=== PATIENT | female | born 1985 | race Caucasian/White ===

== ENCOUNTER 2017-03-29 22:42 | Emergency (ER) | payer SELFPAY ==
[2017-03-29 23:10] VITALS: BP 131/91
[2017-03-29] MEDS ORDERED: Albuterol/Ipratropium 3.0-0.5 MG/3 ML Neb Soln NEB ONE (23:56)
--- NOTE | 2017-03-30 00:14 | EDM.PDOC ---
ED HPI GENERAL MEDICAL PROBLEM - General Chief Complaint: Respiratory Problem Stated Complaint: COUGH Time Seen by Provider: 03/29/17 23:55 Source of Information: Reports: Patient History Limitations: Reports: No Limitations - History of Present Illness INITIAL COMMENTS - FREE TEXT/NARRATIVE: This is a 31-year-old female. 2 weeks ago she was seen by her family doctor for acute bronchitis and exacerbation of her asthma. She was given prednisone and placed on Zithromax. She is finished the medication she still having increasing coughing congestion and wheezing. She comes to the ER for evaluation. She denies any fever or chills. She does have coughing spells where she can hardly stop coughing. She continues to have wheezing and she is coughing up green brown and yellow phlegm. No nausea vomiting. She denies being . 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 Chest Pain Score (Numeric/FACES): 8 - Related Data Allergies Allergy/AdvReac Type Severity Reaction Status Date / Time morphine Allergy Severe Airway Verified 03/29/17 23:05 Tightness Home Meds: Home Meds traZODone 50 mg PO BEDTIME 07/08/15 [History] Meloxicam 15 mg PO DAILY #10 tablet 01/01/16 [Rx] Rizatriptan Benzoate [Rizatriptan] 1 tab PO Q2H PRN #3 tab.rapdis 11/29/16 [Rx] Amoxicillin/Potassium Clav [Augmentin 875-125 Tablet] 1 each PO BID #20 tablet 03/30/17 [Rx] Benzonatate [Tessalon Perles] 200 mg PO TID PRN #20 cap 03/30/17 [Rx] Prednisone [IJD: predniSONE] 20 mg PO WITHBREAKFAST #5 tab 03/30/17 [Rx] Past Medical History Other OB/BYN History: left ovarian cystectomy hx. lap hysterectomy on 07/08/2015 Neurological History: Reports: Migraines Psychiatric History: Reports: Depression, Other (See Below) - Past Surgical History HEENT Surgical History: Reports: Naso-Sinus Surgery GI Surgical History: Reports: Appendectomy, Cholecystectomy Female Surgical History: Reports: Hysterectomy, Salpingo-Oophorectomy, Other (See Below) Musculoskeletal Surgical History: Reports: Other (See Below) Social & Family History - Tobacco Use Smoking Status *Q: Current Every Day Smoker Years of Tobacco use: 10 Packs/Tins Daily: 1 Second Hand Smoke Exposure: No - Caffeine Use Caffeine Use: Reports: Coffee, Energy Drinks, Soda, Tea - Alcohol Use Days Per Week of Alcohol Use: 0 - Recreational Drug Use Recreational Drug Use: No Drug Use in Last 12 Months: No - Living Situation & Occupation Living situation: Reports: Single, with Significant Other Occupation: Employed ED ROS GENERAL - Review of Systems Review Of Systems: See Below Constitutional: Denies: Fever, Chills HEENT: Denies: Rhinitis, Sinus Problem, Throat Pain Respiratory: Reports: Shortness of Breath, Wheezing, Cough, Sputum Cardiovascular: Denies: Chest Pain Endocrine: Reports: No Symptoms GI/Abdominal: Denies: Abdominal Pain, Nausea, Vomiting : Reports: No Symptoms Musculoskeletal: Reports: Other (Patient has global tenderness in her chest from her coughing) Skin: Reports: No Symptoms Neurological: Reports: No Symptoms Psychiatric: Reports: No Symptoms Hematologic/Lymphatic: Reports: No Symptoms ED EXAM, GENERAL - Physical Exam Exam: See Below Exam Limited By: No Limitations General Appearance: Alert, WD/WN, No Apparent Distress Eye Exam: Bilateral Eye: Normal Inspection Ears: Normal External Exam, Normal Canal, Normal TMs Nose: Normal Inspection Throat/Mouth: Normal Inspection, Normal Lips, Normal Voice, No Airway Compromise Head: Normocephalic Neck: Supple Respiratory/Chest: Wheezing, Other (She has wheezing most notably in the left lower base and the right lower base, is expiratory with some mild prolonged expiratory phase, she has global rib and chest tenderness on palpation) Cardiovascular: Regular Rate, Rhythm, No Murmur GI/Abdominal: Soft, Other (Her abdominal muscles are sore as well) Back Exam: Full Range of Motion Extremities: Normal Inspection, Normal Range of Motion Neurological: Alert, Oriented Psychiatric: Normal Affect, Normal Mood Skin Exam: Warm, Dry Course - Vital Signs Last Recorded V/S: Last Vital Signs Temp 97.7 F 03/29/17 23:05 Pulse 110 H 03/29/17 23:05 Resp 18 03/29/17 23:05 BP 131/91 H 03/29/17 23:05 Pulse Ox 100 03/30/17 00:09 - Orders/Labs/Meds Orders: Active Orders 24 hr Category Date Time Status RT Aerosol Therapy [RC] ASDIRECTED Care 03/29/17 23:56 Active Chest 2V [CR] Stat Exams 03/29/17 23:57 Taken Labs: Laboratory Tests 03/30/17 Range/Units 00:16 WBC 9.40 (3.98-10.04) K/mm3 RBC 3.88 L (3.98-5.22) M/mm3 Hgb 11.8 (11.2-15.7) gm/L Hct 35.4 (34.1-44.9) % MCV 91.2 (79.4-94.8) fl MCH 30.4 (25.6-32.2) pg MCHC 33.3 (32.2-35.5) g/dl RDW Std Deviation 42.7 (36.4-46.3) fL Plt Count 250 (182-369) K/mm3 MPV 9.3 L (9.4-12.3) fl Neut % (Auto) 60.2 (34.0-71.1) % Lymph % (Auto) 27.4 (19.3-51.7) % [place] % (Auto) 8.9 (4.7-12.5) % Eos % (Auto) 2.3 (0.7-5.8) Baso % (Auto) 0.2 (0.1-1.2) % Neut # (Auto) 5.65 (1.56-6.13) K/mm3 Lymph # (Auto) 2.58 (1.18-3.74) K/mm3 [place] # (Auto) 0.84 H (0.24-0.36) K/mm3 Eos # (Auto) 0.22 (0.04-0.36) K/mm3 Baso # (Auto) 0.02 (0.01-0.08) K/mm3 Meds: Medications Discontinued Medications Generic Name Dose Route Start Last Admin Trade Name Freq PRN Reason Stop Dose Admin Albuterol/Ipratropium 3 ml 03/29/17 23:56 03/30/17 00:07 Duoneb 3.0-0.5 Mg/3 Ml NEB 03/29/17 23:57 3 ml ONETIME ONE Administration - Radiology Interpretation Free Text/Narrative:: Chest x-ray did not show any acute changes - Re-Assessments/Exams Free Text/Narrative Re-Assessment/Exam: 03/30/17 01:46 Spoke to the patient regarding the test results. We'll put her on some Augmentin and high dose prednisone for 5 days and also some medication for her cough. Departure - Departure Time of Disposition: 01:46 Disposition: Home, Self-Care 01 Condition: good Clinical Impression: Exacerbation of asthma Acute bronchitis Qualifiers: Bronchitis organism: unspecified organism Qualified Code(s): J20.9 - Acute bronchitis, unspecified Upper respiratory infection Qualifiers: URI type: unspecified URI Qualified Code(s): J06.9 - Acute upper respiratory infection, unspecified - Discharge Information Prescriptions: Amoxicillin/Potassium Clav [Augmentin 875-125 Tablet] 1 each PO BID #20 tablet Benzonatate [Tessalon Perles] 200 mg PO TID PRN #20 cap PRN Reason: Cough Prednisone [IJD: predniSONE] 20 mg PO WITHBREAKFAST #5 tab Referrals: Reno Patel Jr, MD [Primary Care Provider] - Forms: ED Department Discharge Additional Instructions: Continue with your albuterol inhaler every 6-8 hours, take the antibiotics as prescribed, take the prednisone in the morning with breakfast to have food in your stomach the next 5 days after you get them tomorrow, use the Tessalon Perles as needed for cough, followup with your family doctor at the end of the week for recheck or return to the ER if your symptoms worsen - My Orders Last 24 Hours: My Active Orders 03/29/17 23:56 RT Aerosol Therapy [RC] ASDIRECTED 03/29/17 23:57 Chest 2V [CR] Stat - Assessment/Plan Last 24 Hours: My Active Orders 03/29/17 23:56 RT Aerosol Therapy [RC] ASDIRECTED 03/29/17 23:57 Chest 2V [CR] Stat
--- NOTE | 2017-03-30 12:56 | CR ---
Chest: Two views of the chest were obtained. Comparison: No previous chest x-ray. Heart size and mediastinum are normal. Lungs are clear. Bony structures appear within normal limits for the patient's age. Surgical clips are seen from prior cholecystectomy. Impression: 1. Nothing acute is identified on two-view chest x-ray. Diagnostic code #1
== END 2017-03-30 01:58 | disposition home or self-care (01) ==
LOC: JD.ED 22:42
DX: J45.901 Unspecified asthma with (acute) exacerbation (principal); J20.9 Acute bronchitis, unspecified; J06.9 Acute upper respiratory infection, unspecified; F17.210 Nicotine dependence, cigarettes, uncomplicated; Z90.49 Acquired absence of other specified parts of digestive tract; Z90.710 Acquired absence of both cervix and uterus; Z90.721 Acquired absence of ovaries, unilateral; Z98.890 Other specified postprocedural states; Z88.5 Allergy status to narcotic agent
CPT/HCPCS: 36415; 71020; 71020-26; 85025; 94664; 99284; 99284-25

== ENCOUNTER 2017-08-17 13:41 | Emergency (ER) | payer SELFPAY ==
[2017-08-17 13:51] VITALS: BP 115/80
--- NOTE | 2017-08-17 14:45 | EDM.PDOC ---
ED HPI GENERAL MEDICAL PROBLEM - General Chief Complaint: Respiratory Problem Stated Complaint: ASTHMA AND SORE THROAT Time Seen by Provider: 08/17/17 14:44 - History of Present Illness INITIAL COMMENTS - FREE TEXT/NARRATIVE: 31-year-old female presents emergency room with breathing difficulties. The patient has had worsening breathing difficulties over the last 7-10 days. The patient is in the process of moving and she misplaced her albuterol and inhaler she usually uses this one or 2 times a day. Her spare inhaler was empty and she has not had this for over a week. This is all she's been using for asthma. The patient complains of intermittent sore throats and tonsillar enlargement. She's been on and off steroids and various antibiotics for this her throat cultures have always been negative. Throat Pain Score (Numeric/FACES): 8 - Related Data Allergies Allergy/AdvReac Type Severity Reaction Status Date / Time morphine Allergy Severe Airway Verified 08/17/17 13:51 Tightness Home Meds: Home Meds traZODone 50 mg PO BEDTIME 07/08/15 [History] Albuterol Sulfate [Proventil Hfa] 6.7 gm IH Q4H PRN #2 hfa.aer.ad 08/17/17 [Rx] Albuterol/Ipratropium [DuoNeb 3.0-0.5 MG/3 ML] 3 ml NEB Q6HRRT #60 neb 08/17/17 [Rx] Amoxicillin 875 mg PO DAILY 08/17/17 [History] Fluticasone Propionate [Flovent HFA 110 MCG] 12 gm INH BID #1 inhaler 08/17/17 [ Rx] Prednisone [IMW: predniSONE] 20 mg PO WITHBREAKFAST #26 tab 08/17/17 [Rx] Sertraline [Zoloft] 50 mg PO DAILY 08/17/17 [History] Past Medical History Respiratory History: Reports: Asthma Other OB/BYN History: left ovarian cystectomy hx. lap hysterectomy on 07/08/2015 Neurological History: Reports: Migraines Psychiatric History: Reports: Depression - Past Surgical History HEENT Surgical History: Reports: Naso-Sinus Surgery GI Surgical History: Reports: Appendectomy, Cholecystectomy Female Surgical History: Reports: Hysterectomy, Salpingo-Oophorectomy Social & Family History - Family History Family Medical History: Noncontributory - Tobacco Use Smoking Status *Q: Never Smoker Years of Tobacco use: 10 Packs/Tins Daily: 1 Second Hand Smoke Exposure: No - Caffeine Use Caffeine Use: Reports: Coffee - Alcohol Use Days Per Week of Alcohol Use: 0 - Recreational Drug Use Recreational Drug Use: No Drug Use in Last 12 Months: No - Living Situation & Occupation Living situation: Reports: Single, with Significant Other Occupation: Employed ED ROS GENERAL - Review of Systems Review Of Systems: See Below Constitutional: Reports: No Symptoms. Denies: Fever, Chills HEENT: Reports: Throat Pain. Denies: No Symptoms, Rhinitis, Sinus Problem, Throat Swelling Respiratory: Reports: Shortness of Breath, Wheezing, Cough Cardiovascular: Reports: No Symptoms GI/Abdominal: Reports: No Symptoms : Reports: No Symptoms ED EXAM, GENERAL - Physical Exam Exam: See Below Exam Limited By: No Limitations General Appearance: Alert, Anxious (Mildly anxious) Eye Exam: Bilateral Eye: Normal Inspection, PERRL Ears: Normal External Exam, Normal Canal, Normal TMs Nose: Normal Inspection Throat/Mouth: Normal Inspection, Normal Lips, Normal Teeth, Normal Gums, Normal Voice, No Airway Compromise, Other (No tonsillar enlargement she has some mild erythema) Neck: Normal Inspection, Supple, Non-Tender, Full Range of Motion. No: Lymphadenopathy (L), Lymphadenopathy (R) Respiratory/Chest: Decreased Breath Sounds, Other (Initially the patient had significantly diminished breath sounds with inspiratory wheezes and severely prolonged expiration no crackles rales or rhonchi noted) Cardiovascular: Regular Rate, Rhythm, No Edema, No Murmur GI/Abdominal: Normal Bowel Sounds, Soft, Non-Tender Course - Vital Signs Last Recorded V/S: Last Vital Signs Temp 36.9 C 08/17/17 13:48 Pulse 79 08/17/17 13:48 Resp 26 H 08/17/17 13:48 BP 115/80 08/17/17 13:48 Pulse Ox 100 08/17/17 15:44 - Orders/Labs/Meds Orders: Active Orders 24 hr Category Date Time Status RT Aerosol Therapy [RC] ASDIRECTED Care 08/17/17 14:55 Active RT Aerosol Therapy [RC] ASDIRECTED Care 08/17/17 15:36 Active RT Aerosol Therapy [RC] ASDIRECTED Care 08/17/17 15:44 Active Chest 2V [CR] Stat Exams 08/17/17 14:59 Taken CULTURE STREP A CONFIRMATION [RM] Stat Lab 08/17/17 15:09 Results STREP SCRN A RAPID W CULT CONF [RM] Stat Lab 08/17/17 15:09 Results Labs: Laboratory Tests 08/17/17 08/17/17 Range/Units 15:15 15:15 WBC 4.51 (3.98-10.04) K/mm3 RBC 4.22 (3.98-5.22) M/mm3 Hgb 12.8 (11.2-15.7) gm/L Hct 38.1 (34.1-44.9) % MCV 90.3 (79.4-94.8) fl MCH 30.3 (25.6-32.2) pg MCHC 33.6 (32.2-35.5) g/dl RDW Std Deviation 41.9 (36.4-46.3) fL Plt Count 215 (182-369) K/mm3 MPV 9.5 (9.4-12.3) fl Neutrophils % (Manual) 45 (40-60) % Band Neutrophils % 0 (0-10) % Lymphocytes % (Manual) 44 H (20-40) % Atypical Lymphs % 0 % Monocytes % (Manual) 9 (2-10) % Eosinophils % (Manual) 2 (0.7-5.8) % Basophils % (Manual) 0 L (0.1-1.2) Platelet Estimate Adequate RBC Morph Comment Normal Sodium 146 H (136-145) mEq/L Potassium 3.3 L (3.5-5.1) mEq/L Chloride 106 (98-107) mEq/L Carbon Dioxide 28 (21-32) mEq/L Anion Gap 15.3 H (5-15) BUN 9 (7-18) mg/dL Creatinine 0.8 (0.55-1.02) mg/dL Est Cr Clr Drug Dosing 84.29 mL/min Estimated GFR (MDRD) > 60 (>60) mL/min BUN/Creatinine Ratio 11.3 L (14-18) Glucose 95 (74-106) mg/dL Calcium 9.1 (8.5-10.1) mg/dL Total Bilirubin 0.4 (0.2-1.0) mg/dL AST 19 (15-37) U/L ALT 18 (14-59) U/L Alkaline Phosphatase 54 (46-116) U/L Total Protein 7.5 (6.4-8.2) g/dl Albumin 4.3 (3.4-5.0) g/dl Globulin 3.2 gm/dL Albumin/Globulin Ratio 1.3 (1-2) Meds: Medications Discontinued Medications Generic Name Dose Route Start Last Admin Trade Name Freq PRN Reason Stop Dose Admin Albuterol 2.5 mg 08/17/17 15:35 08/17/17 15:41 Proventil Neb Soln NEB 08/17/17 15:36 2.5 mg ONETIME ONE Administration Albuterol 2.5 mg 08/17/17 16:15 08/17/17 16:18 Proventil Neb Soln NEB 08/17/17 16:16 2.5 mg ONETIME ONE Administration Albuterol/Ipratropium 3 ml 08/17/17 14:55 08/17/17 15:00 Duoneb 3.0-0.5 Mg/3 Ml NEB 08/17/17 14:56 3 ml ONETIME ONE Administration Methylprednisolone Sodium Succinate 125 mg 08/17/17 14:59 08/17/17 15:38 Solu-Medrol IVPUSH 08/17/17 15:00 125 mg ONETIME ONE Administration - Re-Assessments/Exams Free Text/Narrative Re-Assessment/Exam: 08/17/17 17:21 She is doing much better now she was initially treated with a DuoNeb and this helped significantly she had diffuse inspiratory next 40 wheezes after this treatment prior to this she had very tight breath sounds with a few expiratory wheezes. Her vital signs were relatively stable as was her O2 saturation after the DuoNeb this is followed up with 2 albuterol nebulizers treatment every 30- 45 minutes. After her third nebulizer she was ready to go home she was feeling much better. She did receive 125 mg of Solu-Medrol on admission. At this point I 've cautioned her about leaving too soon we should just watch her for a little bit mixture she remained stable she agrees with this Departure - Departure Time of Disposition: 17:45 Disposition: Home, Self-Care 01 Clinical Impression: Asthma exacerbation - Discharge Information Prescriptions: Albuterol Sulfate [Proventil Hfa] 6.7 gm IH Q4H PRN #2 hfa.aer.ad PRN Reason: Wheezing Albuterol/Ipratropium [DuoNeb 3.0-0.5 MG/3 ML] 3 ml NEB Q6HRRT #60 neb Fluticasone Propionate [Flovent HFA 110 MCG] 12 gm INH BID #1 inhaler Prednisone [IMW: predniSONE] 20 mg PO WITHBREAKFAST #26 tab Referrals: Reno Patel Jr, MD [Primary Care Provider] - Forms: ED Department Discharge Additional Instructions: Return to the emergency room with any questions problems worsening symptoms. All of your regular physician early next week for recheck. You have been started on prednisone take this as directed you'll start taking 3 pills every day for 4 days followed by 2 pills every day for 4 days followed by one pill every day for 4 days followed by a half a pill every day for 4 days. You have been given albuterol inhalers use 2 puffs every 4 hours as needed. You have 6 refills on this you've been started on Flovent this is a topical steroid and you should remain on this it is the cornerstone of asthma therapy as asthma is an inflammatory condition. This is the inhaler used today to help you in 2 weeks. You have been given DuoNeb this is for your nebulizer at home use this every 6 hours for the next 10 days and then decrease and see how this goes. - My Orders Last 24 Hours: My Active Orders 08/17/17 14:55 RT Aerosol Therapy [RC] ASDIRECTED 08/17/17 14:59 Chest 2V [CR] Stat 08/17/17 15:09 CULTURE STREP A CONFIRMATION [RM] Stat STREP SCRN A RAPID W CULT CONF [RM] Stat 08/17/17 15:36 RT Aerosol Therapy [RC] ASDIRECTED 08/17/17 15:44 RT Aerosol Therapy [RC] ASDIRECTED - Assessment/Plan Last 24 Hours: My Active Orders 08/17/17 14:55 RT Aerosol Therapy [RC] ASDIRECTED 08/17/17 14:59 Chest 2V [CR] Stat 08/17/17 15:09 CULTURE STREP A CONFIRMATION [RM] Stat STREP SCRN A RAPID W CULT CONF [RM] Stat 08/17/17 15:36 RT Aerosol Therapy [RC] ASDIRECTED 08/17/17 15:44 RT Aerosol Therapy [RC] ASDIRECTED
[2017-08-17] MEDS ORDERED: Albuterol/Ipratropium 3.0-0.5 MG/3 ML Neb Soln NEB ONE (14:55)
[2017-08-17] MEDS ORDERED: methylPREDNISolone Sodium Succinate 125 MG/2 ML SDV IVPUSH ONE (14:59)
[2017-08-17] MEDS ORDERED: Albuterol 0.083% 2.5 MG/3 ML Neb Soln NEB ONE ×2 (15:35→16:15)
--- NOTE | 2017-08-18 17:11 | CR ---
Chest: Two views of the chest were obtained. Comparison: Previous chest x-ray of 03/30/17. Heart size and mediastinum are within normal limits. Lungs are clear. Surgical clips are seen from prior cholecystectomy. Bony structures are within normal limits for the patient's age. Impression: 1. Nothing acute is appreciated on two-view chest x-ray. Diagnostic code #1
== END 2017-08-17 18:05 | disposition home or self-care (01) ==
LOC: JD.ED 13:41
DX: J45.901 Unspecified asthma with (acute) exacerbation (principal); Z79.899 Other long term (current) drug therapy; Z88.5 Allergy status to narcotic agent
CPT/HCPCS: 36415; 71020; 80053; 85025; 87081; 87430; 94640; 96374; 99285; J2930; 99284

== ENCOUNTER 2018-01-22 20:57 | Emergency (ER) | payer BC ==
[2018-01-22 21:09] VITALS: BP 121/79
--- NOTE | 2018-01-22 21:33 | EDM.PDOC ---
ED HPI GENERAL MEDICAL PROBLEM - General Chief Complaint: Headache Stated Complaint: MIGRAINE Time Seen by Provider: 01/22/18 21:24 Source of Information: Reports: Patient, Old Records History Limitations: Reports: No Limitations - History of Present Illness INITIAL COMMENTS - FREE TEXT/NARRATIVE: 32-year-old female presents for evaluation and treatment of a migraine headache. Reports that the migraine started on 1500 today. States that it began gradually. No Known trigger. She was at work at the time. Reports it is located on the left side of her head starting at her occipital region and spreading anteriorly. States that she took some Excedrin Migraine around 1500 without any symptom relief. Reports associated symptoms of nausea, photophobia, phonophobia and vision changes. She reports auras. Denies any vomiting, fevers, chills, cough or any upper respiratory symptoms.. Patient has past medical history of migraines. She has been seen several times in the past for migraines in the ER. She has had multiple imaging studies done has seen neurology in the past for her migraines. She reports that this migraine headache is similar to previous migraines. primary care provider is Dr. Patel. Onset: Today, Gradual Location: Reports: Head Headache Pain Score (Numeric/FACES): 9 - Related Data Allergies Allergy/AdvReac Type Severity Reaction Status Date / Time morphine Allergy Severe Airway Verified 01/22/18 21:06 Tightness Home Meds: Home Meds traZODone 50 mg PO BEDTIME 07/08/15 [History] Albuterol Sulfate [Proventil Hfa] 6.7 gm IH Q4H PRN #2 hfa.aer.ad 08/17/17 [Rx] Albuterol/Ipratropium [DuoNeb 3.0-0.5 MG/3 ML] 3 ml NEB Q6HRRT #60 neb 08/17/17 [Rx] Fluticasone Propionate [Flovent HFA 110 MCG] 12 gm INH BID #1 inhaler 08/17/17 [ Rx] Sertraline [Zoloft] 50 mg PO DAILY 08/17/17 [History] Past Medical History Respiratory History: Reports: Asthma Other OB/BYN History: left ovarian cystectomy hx. lap hysterectomy on 07/08/2015 Neurological History: Reports: Concussion, Migraines Psychiatric History: Reports: Depression - Past Surgical History HEENT Surgical History: Reports: Naso-Sinus Surgery GI Surgical History: Reports: Appendectomy, Cholecystectomy Female Surgical History: Reports: Hysterectomy, Salpingo-Oophorectomy Social & Family History - Family History Family Medical History: Noncontributory - Tobacco Use Smoking Status *Q: Never Smoker Years of Tobacco use: 10 Packs/Tins Daily: 1 Second Hand Smoke Exposure: No - Caffeine Use Caffeine Use: Reports: Coffee - Alcohol Use Days Per Week of Alcohol Use: 0 - Recreational Drug Use Recreational Drug Use: No Drug Use in Last 12 Months: No - Living Situation & Occupation Living situation: Reports: Single, with Significant Other Occupation: Employed ED ROS GENERAL - Review of Systems Review Of Systems: See Below Constitutional: Denies: Fever, Chills HEENT: Reports: Vision Change. Denies: Ear Pain, Throat Pain Respiratory: Denies: Cough Musculoskeletal: Denies: Neck Pain Neurological: Reports: Headache - Physical Exam Exam: See Below Exam Limited By: No Limitations General Appearance: Alert, WD/WN, Mild Distress, Thin Eye Exam: Bilateral Eye: Normal Inspection, PERRL Ears: Normal External Exam, Normal Canal, Hearing Grossly Normal, Normal TMs Nose: Normal Inspection Throat/Mouth: Normal Inspection, Normal Lips, Normal Voice, No Airway Compromise Respiratory/Chest: No Respiratory Distress, Lungs Clear, Normal Breath Sounds Cardiovascular: Normal Peripheral Pulses, Regular Rate, Rhythm, No Murmur Neuro Exam (Abbreviated): Alert, Oriented, Normal Cognition Psychiatric: Normal Affect, Normal Mood Skin Exam: Warm, Dry, Normal Color Course - Vital Signs Last Recorded V/S: Last Vital Signs Temp 37.7 C 01/22/18 21:08 Pulse 91 01/22/18 21:08 Resp 16 01/22/18 21:08 BP 121/79 01/22/18 21:08 Pulse Ox 100 01/22/18 21:08 - Orders/Labs/Meds Meds: Medications Discontinued Medications Generic Name Dose Route Start Last Admin Trade Name Kinsey PRN Reason Stop Dose Admin Diphenhydramine HCl 50 mg 01/22/18 21:26 01/22/18 21:36 Benadryl IM 01/22/18 21:27 50 mg ONETIME ONE Administration Haloperidol Lactate 5 mg 01/22/18 22:12 01/22/18 22:21 Haldol IM 01/22/18 22:13 5 mg ONETIME ONE Administration Ketorolac Tromethamine 60 mg 01/22/18 21:27 01/22/18 21:36 Toradol IM 01/22/18 21:28 60 mg ONETIME ONE Administration Promethazine HCl 25 mg 01/22/18 21:26 01/22/18 21:37 Phenergan IM 01/22/18 21:27 25 mg ONETIME ONE Administration - Re-Assessments/Exams Free Text/Narrative Re-Assessment/Exam: 01/22/18 22:13 Checked on the patient. Migraine is improving. Now a 5 out of 10. She would like to try more medications for additional relief. Haldol 5 mg IM ordered. 01/22/18 22:44 Checked on the patient. She no longer has a migraine and feels "awesome". We'll let her home at this time. Discharge instructions as documented. Departure - Departure Time of Disposition: 22:45 Disposition: Home, Self-Care 01 Condition: Good Clinical Impression: Migraine - Discharge Information Referrals: Reno Patel Jr, MD [Primary Care Provider] - Forms: ED Department Discharge Additional Instructions: Go home and rest in a dark quiet room. Make sure you are drinking plenty of fluids. Continue with your current plan of care for migraine headaches. Follow-up with your primary care provider and neurology as needed. Please return to the ER if your symptoms change or worsen.
[2018-01-22] MEDS: diphenhydrAMINE 50 MG/ML SDV IM ONE (21:36)
[2018-01-22] MEDS: Ketorolac 60 MG/2 ML SDV IM ONE (21:36)
[2018-01-22] MEDS: Promethazine 25 MG/ML SDV IM ONE (21:37)
[2018-01-22] MEDS: Haloperidol Lactate 5 MG/ML SDV IM ONE (22:21)
== END 2018-01-22 22:49 | disposition home or self-care (01) ==
LOC: JD.ED 20:57
DX: G43.909 Migraine, unspecified, not intractable, without status migrainosus (principal); J45.909 Unspecified asthma, uncomplicated; Z88.5 Allergy status to narcotic agent; Z79.899 Other long term (current) drug therapy; Z90.49 Acquired absence of other specified parts of digestive tract
CPT/HCPCS: 96372; 99283; J1200; J1630; J1885; J2550

== ENCOUNTER 2018-02-10 10:29 | Emergency (ER) | payer BC ==
--- NOTE | 2018-02-10 11:22 | EDM.PDOC ---
ED HPI GENERAL MEDICAL PROBLEM - General Chief Complaint: Chest Pain Stated Complaint: CHEST PAIN Time Seen by Provider: 02/10/18 10:43 Source of Information: Reports: Patient, RN Notes Reviewed - History of Present Illness INITIAL COMMENTS - FREE TEXT/NARRATIVE: 32-year-old female presents with anterior chest discomfort. This started about 2 days ago mild achy discomfort anterior chest without radiation. She was started on Wellbutrin 150 mg extended release about 2 or 3 days ago. the chest discomfort started shortly after that. She Has been on Zoloft for quite a long time. Apparently the plan by her clinic provider is to switch her over from Zoloft to the Wellbutrin. She has not been ill with cough fever chills nausea vomiting or diaphoresis. No abdominal pain at this time. No shortness of breath or difficulty breathing. Chest Pain Score (Numeric/FACES): 7 - Related Data Allergies Allergy/AdvReac Type Severity Reaction Status Date / Time morphine Allergy Severe Airway Verified 02/10/18 10:36 Tightness Home Meds: Home Meds traZODone 50 mg PO BEDTIME 07/08/15 [History] Albuterol Sulfate [Proventil Hfa] 6.7 gm IH Q4H PRN #2 hfa.aer.ad 08/17/17 [Rx] Sertraline [Zoloft] 50 mg PO DAILY 08/17/17 [History] buPROPion HCl [Wellbutrin Xl] 150 mg PO DAILY 02/10/18 [History] Past Medical History Respiratory History: Reports: Asthma Other OB/BYN History: left ovarian cystectomy hx. lap hysterectomy on 07/08/2015 Neurological History: Reports: Concussion, Migraines Psychiatric History: Reports: Depression - Past Surgical History HEENT Surgical History: Reports: Naso-Sinus Surgery GI Surgical History: Reports: Appendectomy, Cholecystectomy Female Surgical History: Reports: Hysterectomy, Salpingo-Oophorectomy Musculoskeletal Surgical History: Reports: Other (See Below) Social & Family History - Family History Family Medical History: Noncontributory - Tobacco Use Smoking Status *Q: Current Every Day Smoker Years of Tobacco use: 10 Packs/Tins Daily: 1 Second Hand Smoke Exposure: No - Caffeine Use Caffeine Use: Reports: Soda - Alcohol Use Days Per Week of Alcohol Use: 0 - Recreational Drug Use Recreational Drug Use: No Drug Use in Last 12 Months: No - Living Situation & Occupation Living situation: Reports: Single, with Significant Other Occupation: Employed ED ROS GENERAL - Review of Systems Review Of Systems: See Below Constitutional: Denies: Fever, Chills, Diaphoresis HEENT: Denies: Sinus Problem, Throat Pain Respiratory: Denies: Shortness of Breath, Pleuritic Chest Pain, Cough Cardiovascular: Reports: Chest Pain GI/Abdominal: Denies: Abdominal Pain, Nausea, Vomiting Musculoskeletal: Denies: Neck Pain, Shoulder Pain, Arm Pain, Back Pain Skin: Reports: No Symptoms Neurological: Reports: No Symptoms ED EXAM, GENERAL - Physical Exam Exam: See Below General Appearance: Alert, No Apparent Distress Eye Exam: Bilateral Eye: PERRL Throat/Mouth: Normal Inspection Head: Atraumatic. No: Facial Swelling Neck: Supple, Full Range of Motion Respiratory/Chest: No Respiratory Distress, Lungs Clear, Normal Breath Sounds, Chest Non-Tender Cardiovascular: Normal Peripheral Pulses, Regular Rate, Rhythm, No Edema Extremities: Normal Inspection. No: Pedal Edema, Leg Pain Neurological: Alert, No Motor/Sensory Deficits Skin Exam: Warm, Dry, Normal Color EKG INTERPRETATION EKG Date: 02/10/18 Rhythm: NSR [place]: Normal P-Wave: Present QRS: Normal ST-T: Other (T-wave inversions lead 3, no ST elevation or depression) Course - Vital Signs Last Recorded V/S: Last Vital Signs Temp 97.8 F 02/10/18 10:33 Pulse 81 02/10/18 10:33 Resp 16 02/10/18 10:33 BP Pulse Ox 98 02/10/18 10:33 - Orders/Labs/Meds Orders: Active Orders 24 hr Category Date Time Status EKG 12 Lead [EKG Documentation Completion] [RC] STAT Care 02/10/18 10:44 Active - Re-Assessments/Exams Free Text/Narrative Re-Assessment/Exam: 02/10/18 11:31 She is a small person, only 53 kg, have written a script for wellbutrin 100 mg to take 1/2 tab bid for 5 days and than go to the 175 mg dose. Departure - Departure Time of Disposition: 11:20 Disposition: Home, Self-Care 01 Condition: Fair Clinical Impression: Atypical chest pain Instructions: Nonspecific Chest Pain, [id number] Referrals: Reno Patel Jr, MD [Primary Care Provider] - Forms: ED Department Discharge, ED Return to Work/School Form Additional Instructions: decrease dosage of wellbutrin to to 50 mg, 1/2 of a 100 mg tablet twice daily for the next 5 days and than progress back to the 150 mg dosage as previously prescribed. For now continue Zoloft as previously prescribed. Follow-up clinic as needed, return to ED as needed if symptoms worsening in any way - My Orders Last 24 Hours: My Active Orders 02/10/18 10:44 EKG 12 Lead [EKG Documentation Completion] [RC] STAT - Assessment/Plan Last 24 Hours: My Active Orders 02/10/18 10:44 EKG 12 Lead [EKG Documentation Completion] [RC] STAT
== END 2018-02-10 11:32 | disposition home or self-care (01) ==
LOC: JD.ED 10:29
DX: R07.89 Other chest pain (principal); J45.909 Unspecified asthma, uncomplicated; F17.210 Nicotine dependence, cigarettes, uncomplicated; Z90.49 Acquired absence of other specified parts of digestive tract
CPT/HCPCS: 93005; 93010; 99284-25; 99285-25

== ENCOUNTER 2018-02-11 11:06 | Emergency (ER) | payer BC ==
[2018-02-11 11:26] VITALS: BP 107/75
[2018-02-11] MEDS ORDERED: Sodium Chloride 0.9% 10 ML Syringe FLUSH PRN (11:59)
[2018-02-11] MEDS ORDERED: Sodium Chloride 0.9% 500 ML IV ONE (11:59)
[2018-02-11] MEDS ORDERED: Ondansetron 4 MG/2 ML SDV IVPUSH ONE (11:59)
--- NOTE | 2018-02-11 13:32 | EDM.PDOC ---
ED HPI GENERAL MEDICAL PROBLEM - General Chief Complaint: Syncope Stated Complaint: SYNCOPE Time Seen by Provider: 02/11/18 11:38 Source of Information: Reports: Patient, RN Notes Reviewed - History of Present Illness INITIAL COMMENTS - FREE TEXT/NARRATIVE: 32-year-old female resents to the ED after having suffered a syncopal event at work. She was just sitting at her desk, involved with normal activity when she began to feel weak, lightheaded, dizzy, warm, nauseated and then "passed out". At this time she continues to feel somewhat dizzy and also mild nausea. She presented to the E department yesterday having difficulty with chest discomfort and palpitations. This was felt to possibly be related to adjusting to Wellbutrin medication just very recently started just a couple of days prior. Dosage on that was cut back. See that record for details. She had not had much to eat or drink at this morning. No prior vomiting or diarrhea. Headache Pain Score (Numeric/FACES): 6 - Related Data Allergies Allergy/AdvReac Type Severity Reaction Status Date / Time morphine Allergy Severe Airway Verified 02/11/18 11:22 Tightness Home Meds: Home Meds traZODone 50 mg PO BEDTIME 07/08/15 [History] Albuterol Sulfate [Proventil Hfa] 6.7 gm IH Q4H PRN #2 hfa.aer.ad 08/17/17 [Rx] Sertraline [Zoloft] 50 mg PO DAILY 08/17/17 [History] buPROPion HCl [Wellbutrin Xl] 50 mg PO BID 02/10/18 [History] Past Medical History Respiratory History: Reports: Asthma Other OB/BYN History: left ovarian cystectomy hx. lap hysterectomy on 07/08/2015 Neurological History: Reports: Concussion, Migraines Psychiatric History: Reports: Depression - Past Surgical History HEENT Surgical History: Reports: Naso-Sinus Surgery GI Surgical History: Reports: Appendectomy, Cholecystectomy Female Surgical History: Reports: Hysterectomy, Salpingo-Oophorectomy Musculoskeletal Surgical History: Reports: Other (See Below) Social & Family History - Family History Family Medical History: Noncontributory - Tobacco Use Smoking Status *Q: Never Smoker Years of Tobacco use: 10 Packs/Tins Daily: 1 Second Hand Smoke Exposure: No - Caffeine Use Caffeine Use: Reports: Soda - Alcohol Use Days Per Week of Alcohol Use: 0 - Recreational Drug Use Recreational Drug Use: No Drug Use in Last 12 Months: No - Living Situation & Occupation Living situation: Reports: Single, with Significant Other Occupation: Employed ED ROS GENERAL - Review of Systems Review Of Systems: See Below Constitutional: Reports: Diaphoresis (Mild, gone). Denies: Fever, Chills HEENT: Denies: Sinus Problem, Throat Pain Respiratory: Denies: Shortness of Breath, Pleuritic Chest Pain Cardiovascular: Reports: Chest Pain (Intermittent for the last several days, mild) GI/Abdominal: Reports: Nausea. Denies: Abdominal Pain, Diarrhea, Vomiting Musculoskeletal: Reports: No Symptoms Skin: Denies: Rash Neurological: Reports: Dizziness. Denies: Numbness, Tingling - Physical Exam Exam: See Below General Appearance: Alert, No Apparent Distress Eye Exam: Bilateral Eye: PERRL Throat/Mouth: Normal Inspection, Normal Oropharynx Head Exam: Atraumatic Neck: Supple Respiratory/Chest: No Respiratory Distress, Lungs Clear, Normal Breath Sounds Cardiovascular: Regular Rate, Rhythm GI/Abdominal: Soft Neuro Exam (Abbreviated): Alert, Oriented, No Motor/Sensory Deficits Extremities: Normal Inspection, Normal Range of Motion Skin Exam: Warm, Dry, Normal Color, No Rash EKG INTERPRETATION EKG Date: 02/11/18 Rhythm: NSR [place]: Normal P-Wave: Present QRS: Normal ST-T: Normal Course - Vital Signs Last Recorded V/S: Last Vital Signs Temp 98.9 F 02/11/18 11:23 Pulse 86 02/11/18 11:23 Resp BP 107/75 02/11/18 11:23 Pulse Ox 100 02/11/18 11:23 - Orders/Labs/Meds Orders: Active Orders 24 hr Category Date Time Status EKG Documentation Completion [RC] ASDIRECTED Care 02/11/18 11:30 Active Peripheral IV Care [RC] . DIRECTED Care 02/11/18 11:59 Active Sodium Chloride 0.9% [Saline Flush] Med 02/11/18 11:59 Active 10 ml FLUSH ASDIRECTED PRN Peripheral IV Insertion Adult [OM.PC] Stat Oth 02/11/18 11:59 Ordered EKG 12 Lead [EK] Stat Ther 02/11/18 11:30 Ordered Medication Orders Sodium Chloride (Saline Flush) 10 ml FLUSH ASDIRECTED PRN PRN Reason: Keep Vein Open Last Admin: 02/11/18 12:14 Dose: 10 ml Labs: Laboratory Tests 02/11/18 02/11/18 Range/Units 11:38 11:38 WBC 5.04 (3.98-10.04) K/mm3 RBC 3.86 L (3.98-5.22) M/mm3 Hgb 11.9 (11.2-15.7) gm/L Hct 36.2 (34.1-44.9) % MCV 93.8 (79.4-94.8) fl MCH 30.8 (25.6-32.2) pg MCHC 32.9 (32.2-35.5) g/dl RDW Std Deviation 44.0 (36.4-46.3) fL Plt Count 205 (182-369) K/mm3 MPV 9.8 (9.4-12.3) fl Neut % (Auto) 64.1 (34.0-71.1) % Lymph % (Auto) 26.2 (19.3-51.7) % [place] % (Auto) 7.9 (4.7-12.5) % Eos % (Auto) 1.6 (0.7-5.8) Baso % (Auto) 0.0 L (0.1-1.2) % Neut # (Auto) 3.23 (1.56-6.13) K/mm3 Lymph # (Auto) 1.32 (1.18-3.74) K/mm3 [place] # (Auto) 0.40 H (0.24-0.36) K/mm3 Eos # (Auto) 0.08 (0.04-0.36) K/mm3 Baso # (Auto) 0.00 L (0.01-0.08) K/mm3 Sodium 142 (136-145) mEq/L Potassium 3.4 L (3.5-5.1) mEq/L Chloride 104 (98-107) mEq/L Carbon Dioxide 29 (21-32) mEq/L Anion Gap 12.4 (5-15) BUN 7 (7-18) mg/dL Creatinine 0.8 (0.55-1.02) mg/dL Est Cr Clr Drug Dosing 79.52 mL/min Estimated GFR (MDRD) > 60 (>60) mL/min BUN/Creatinine Ratio 8.8 L (14-18) Glucose 92 (74-106) mg/dL Calcium 9.0 (8.5-10.1) mg/dL Total Bilirubin 0.4 (0.2-1.0) mg/dL AST 18 (15-37) U/L ALT 13 L (14-59) U/L Alkaline Phosphatase 44 L (46-116) U/L Total Protein 7.1 (6.4-8.2) g/dl Albumin 4.3 (3.4-5.0) g/dl Globulin 2.8 gm/dL Albumin/Globulin Ratio 1.5 (1-2) Meds: Medications Generic Name Dose Route Start Last Admin Trade Name Freq PRN Reason Stop Dose Admin Sodium Chloride 10 ml 02/11/18 11:59 02/11/18 12:14 Saline Flush FLUSH 10 ml ASDIRECTED PRN Administration Keep Vein Open Discontinued Medications Generic Name Dose Route Start Last Admin Trade Name Freq PRN Reason Stop Dose Admin Sodium Chloride 500 mls @ 999 mls/hr 02/11/18 11:59 02/11/18 12:09 Normal Saline IV 02/11/18 12:29 999 mls/hr .BOLUS ONE Administration Ondansetron HCl 4 mg 02/11/18 11:59 02/11/18 12:09 Zofran IVPUSH 02/11/18 12:00 4 mg ONETIME ONE Administration Departure - Departure Time of Disposition: 13:40 Disposition: Home, Self-Care 01 Condition: Fair Clinical Impression: Syncope Qualifiers: Syncope type: vasovagal syncope Qualified Code(s): R55 - Syncope and collapse - Discharge Information Referrals: Reno Patel Jr, MD [Primary Care Provider] - Forms: ED Department Discharge, ED Return to Work/School Form Additional Instructions: Rest, drink plenty of water as discussed to maintain hydration, if you do have further episodes of severe lightheadedness or dizziness get your head down so you do not pass out, stop the Wellbutrin for now I'll up with your medical provider liter this afternoon as planned to discuss further medication options. - My Orders Last 24 Hours: My Active Orders 02/11/18 11:30 EKG Documentation Completion [RC] ASDIRECTED EKG 12 Lead [EK] Stat 02/11/18 11:59 Peripheral IV Care [RC] . DIRECTED Sodium Chloride 0.9% [Saline Flush] 10 ml FLUSH ASDIRECTED PRN Peripheral IV Insertion Adult [OM.PC] Stat - Assessment/Plan Last 24 Hours: My Active Orders 02/11/18 11:30 EKG Documentation Completion [RC] ASDIRECTED EKG 12 Lead [EK] Stat 02/11/18 11:59 Peripheral IV Care [RC] . DIRECTED Sodium Chloride 0.9% [Saline Flush] 10 ml FLUSH ASDIRECTED PRN Peripheral IV Insertion Adult [OM.PC] Stat
== END 2018-02-11 13:56 | disposition home or self-care (01) ==
LOC: JD.ED 11:06
DX: R55 Syncope and collapse (principal); Z88.5 Allergy status to narcotic agent; Z79.899 Other long term (current) drug therapy
CPT/HCPCS: 36415; 80053; 85025; 93005; 96361; 96374; 99284; J2405; J7040; J7050; 93010

== ENCOUNTER 2018-08-01 08:36 | Emergency (ER) | payer BC, MEDICAID ==
[2018-08-01] MEDS ORDERED: Ondansetron 4 MG/2 ML SDV IVPUSH ONE (09:03)
[2018-08-01] MEDS ORDERED: HYDROmorphone 0.5 MG/0.5 ML SYRINGE IVPUSH ONE ×2 (09:06→12:00)
[2018-08-01] MEDS ORDERED: Sodium Chloride 0.9% 1,000 ML IV SCH (09:15)
--- NOTE | 2018-08-01 09:16 | EDM.PDOC ---
ED HPI GENERAL MEDICAL PROBLEM - General Chief Complaint: Gastrointestinal Problem Stated Complaint: BLEEDING FROM THE RECTUM Time Seen by Provider: 08/01/18 08:45 Source of Information: Reports: Patient, Family (), RN Notes Reviewed History Limitations: Reports: No Limitations - History of Present Illness INITIAL COMMENTS - FREE TEXT/NARRATIVE: The patient states that she has had lower abdominal pain coming and going for the past 3 days. It is crampy and stabbing in character. She states that she has also had no energy for the past 3 days, although denies lightheadedness. She states that she had blood mixed with an otherwise normal stool this morning. No recent constipation or diarrhea. She has had slight nausea, but no emesis. No recent No recent fever. No prior similar symptoms. The patient states that she has never undergone a colonoscopy. She denies any past gastrointestinal history, such as acid reflux or ulcers. The patient's PCP is Dr. Reno Patel. 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: Reports: Neurological History: Reports: Migraines Psychiatric History: Reports: Depression, Other (See Below) (Insomnia) - Past Surgical History HEENT Surgical History: Reports: Naso-Sinus Surgery, Oral Surgery (2 wisdom teeth extracted) GI Surgical History: Reports: Appendectomy, Cholecystectomy (2005) Female Surgical History: Reports: Hysterectomy (07/08/2015), Salpingo- Oophorectomy (07/08/2015), Other (See Below) (Left ovarian cystectomy) Musculoskeletal Surgical History: Reports: Other (See Below) (Right bunionectomy ) Social & Family History - Family History Family Medical History: Noncontributory - Tobacco Use Smoking Status *Q: Former Smoker Years of Tobacco use: 18 Packs/Tins Daily: 0.5 Month/Year Tobacco Last Used: Quit December 2017 - Caffeine Use Caffeine Use: Reports: Coffee, Soda - Alcohol Use Alcohol Use History: Yes Alcohol Use Frequency: Socially - Recreational Drug Use Recreational Drug Use: No - Living Situation & Occupation Living situation: Reports: , with Spouse, with Family (3 kids) Occupation: Unemployed ED ROS GENERAL - Review of Systems Review Of Systems: ROS reveals no pertinent complaints other than HPI. ED EXAM, GI/ABD - Physical Exam Exam: See Below Exam Limited By: No Limitations General Appearance: Alert, WD/WN, No Apparent Distress Eyes: Bilateral: Normal Appearance, EOMI Ears: Normal External Exam, Hearing Grossly Normal Nose: Normal Inspection Throat/Mouth: Normal Inspection, Normal Lips, Normal Voice, No Airway Compromise Head: Atraumatic, Normocephalic Neck: Normal Inspection, Full Range of Motion Respiratory/Chest: No Respiratory Distress, Lungs Clear, Normal Breath Sounds, No Accessory Muscle Use Cardiovascular: Normal Peripheral Pulses, Regular Rate, Rhythm, No Edema, No Gallop, No JVD, No Murmur, No Rub GI/Abdominal Exam: Normal Bowel Sounds (active), Soft, No Organomegaly, No Distention, No Abnormal Bruit, No Mass, Tender (Lower abdomen only, particularly suprapubic. Upper abdomen nontender.) (Female) Exam: Deferred Rectal (Female) Exam: Normal Rectal Tone, Heme - Stool, Hemorrhoids (small external, non-thrombosed, nontender), Tenderness (rectal exam induced same lower abdominal pain) Back Exam: Normal Inspection, Full Range of Motion, NT Extremities: Normal Inspection, Normal Range of Motion, Non-Tender, Normal Capillary Refill, No Pedal Edema Neurological: Alert, Oriented, Normal Cognition, No Motor/Sensory Deficits Psychiatric: Normal Affect Skin Exam: Warm, Dry, Intact, Normal Color, No Rash Course - Vital Signs Last Recorded V/S: Last Vital Signs Temp 36.9 C 08/01/18 08:43 Pulse 89 08/01/18 08:43 Resp 18 08/01/18 08:43 BP 122/83 08/01/18 08:43 Pulse Ox 98 08/01/18 08:43 Orthostatic Blood Pressure [ 111/80 Standing] Orthostatic Blood Pressure [ 114/84 Sitting] Orthostatic Blood Pressure [ 110/80 Supine] - Orders/Labs/Meds Orders: Active Orders 24 hr Category Date Time Status Orthostatic Vital Signs [RC] STAT Care 08/01/18 09:06 Active Sodium Chloride 0.9% [Normal Saline] 1,000 ml Med 08/01/18 09:15 Active IV ASDIRECTED Sodium Chloride 0.9% [Saline Flush] Med 08/01/18 09:47 Active 10 ml FLUSH ONETIME PRN Medication Orders Sodium Chloride (Normal Saline) 1,000 mls @ 150 mls/hr IV ASDIRECTED TUCKER Last Admin: 08/01/18 09:22 Dose: 150 mls/hr Sodium Chloride (Saline Flush) 10 ml FLUSH ONETIME PRN PRN Reason: IV FLUSH Last Admin: 08/01/18 10:36 Dose: 10 ml Labs: Laboratory Tests 08/01/18 08/01/18 08/01/18 Range/Units 09:15 09:20 09:20 WBC 7.50 (3.98-10.04) K/mm3 RBC 4.09 (3.98-5.22) M/mm3 Hgb 12.8 (11.2-15.7) gm/L Hct 38.0 (34.1-44.9) % MCV 92.9 (79.4-94.8) fl MCH 31.3 (25.6-32.2) pg MCHC 33.7 (32.2-35.5) g/dl RDW Std Deviation 42.6 (36.4-46.3) fL Plt Count 262 (182-369) K/mm3 MPV 9.6 (9.4-12.3) fl Neutrophils % (Manual) 69 H (40-60) % Band Neutrophils % 0 (0-10) % Lymphocytes % (Manual) 28 (20-40) % Atypical Lymphs % 0 % Monocytes % (Manual) 1 L (2-10) % Eosinophils % (Manual) 2 (0.7-5.8) % Basophils % (Manual) 0 L (0.1-1.2) Platelet Estimate Adequate RBC Morph Comment Normal Sodium 140 (136-145) mEq/L Potassium 3.7 (3.5-5.1) mEq/L Chloride 105 (98-107) mEq/L Carbon Dioxide 28 (21-32) mEq/L Anion Gap 10.7 (5-15) BUN 7 (7-18) mg/dL Creatinine 0.8 (0.55-1.02) mg/dL Est Cr Clr Drug Dosing 83.51 mL/min Estimated GFR (MDRD) > 60 (>60) mL/min BUN/Creatinine Ratio 8.8 L (14-18) Glucose 82 (74-106) mg/dL Calcium 8.6 (8.5-10.1) mg/dL Total Bilirubin 0.3 (0.2-1.0) mg/dL AST 11 L (15-37) U/L ALT 15 (14-59) U/L Alkaline Phosphatase 55 (46-116) U/L Total Protein 6.8 (6.4-8.2) g/dl Albumin 3.8 (3.4-5.0) g/dl Globulin 3.0 gm/dL Albumin/Globulin Ratio 1.3 (1-2) Lipase 124 (73-393) U/L Urine Color Yellow (Yellow) Urine Appearance Clear (Clear) Urine pH 7.5 (5.0-8.0) Ur Specific [place] 1.020 (1.005-1.030) Urine Protein Negative (Negative) Urine Glucose (UA) Negative (Negative) Urine Ketones Negative (Negative) Urine Occult Blood Trace-intact H (Negative) Urine Nitrite Negative (Negative) Urine Bilirubin Negative (Negative) Urine Urobilinogen 0.2 (0.2-1.0) Ur Leukocyte Esterase Negative (Negative) Urine RBC Not seen (0-5) /hpf Urine WBC Not seen (0-5) /hpf Ur Epithelial Cells Not seen (0-5) /hpf Urine Bacteria Not seen (FEW) /hpf Urine Mucus Not seen (FEW) /hpf Meds: Medications Generic Name Dose Route Start Last Admin Trade Name Freq PRN Reason Stop Dose Admin Sodium Chloride 1,000 mls @ 150 mls/hr 08/01/18 09:15 08/01/18 09:22 Normal Saline IV 150 mls/hr ASDIRECTED TUCKER Administration Sodium Chloride 10 ml 08/01/18 09:47 08/01/18 10:36 Saline Flush FLUSH 10 ml ONETIME PRN Administration IV FLUSH Discontinued Medications Generic Name Dose Route Start Last Admin Trade Name Freq PRN Reason Stop Dose Admin Diatrizoate Meglum/Diatrizoate Sod 120 ml 08/01/18 09:47 08/01/18 10:35 Gastrografin 37% PO 08/01/18 09:48 90 ml ONETIME ONE Administration Hydromorphone HCl 0.5 mg 08/01/18 09:06 08/01/18 09:22 Dilaudid IVPUSH 08/01/18 09:07 0.5 mg ONETIME ONE Administration Hydromorphone HCl 0.5 mg 08/01/18 11:08 08/01/18 11:15 Dilaudid IVPUSH 08/01/18 11:09 0.5 mg ONETIME STA Administration Hydromorphone HCl 0.5 mg 08/01/18 12:00 08/01/18 12:14 Dilaudid IVPUSH 08/01/18 12:01 0.5 mg ONETIME ONE Administration Iopamidol 100 ml 08/01/18 09:47 08/01/18 10:35 Isovue-300 (61%) IVPUSH 08/01/18 09:48 100 ml ONETIME ONE Administration Ondansetron HCl 4 mg 08/01/18 09:03 08/01/18 09:22 Zofran IVPUSH 08/01/18 09:04 4 mg ONETIME ONE Administration - Re-Assessments/Exams Free Text/Narrative Re-Assessment/Exam: 08/01/18 09:23 As above, the patient was heme-negative on rectal exam, however, on her abdominal examination, she is quite tender across her lower abdomen, particularly suprapubically. In addition to a urinalysis, I have ordered blood work and a CT scan of her abdomen and pelvis with oral and IV contrast. I have also ordered orthostatics. 08/01/18 09:33 The patient is not orthostatic. 08/01/18 11:05 CT of the abdomen and pelvis with oral and IV contrast is read by Dr. Holt as: 1. Free fluid within the pelvis either physiologic or due to nonvisualized adnexal cyst rupture. 2. Appendix not visualized with certainty. 3. CT study of the abdomen and pelvis is otherwise unremarkable. 08/01/18 11:[address] results, I am concerned that the patient may have a hemorrhagic ovarian cyst. If there is significant bleeding into the pelvis, the blood could conceivably traverse the vagina and be the source of bleeding that the patient thought was rectal, this morning. This was discussed with the patient. I recommended a transvaginal ultrasound to better evaluate the nature of the pelvic fluid. The patient has agreed. 08/01/18 12:37 Transvaginal ultrasound is read by Dr. Del Rio as: 1. Diffuse fluid-filled bowel without bowel dilatation. 2. Previous hysterectomy. 3. Small complicated cyst within the right ovary felt to represent hemorrhagic and physiologic cyst. 4. Free fluid within the pelvis which by pelvic ultrasound appears to be physiologic. 08/01/18 12:59 Test results discussed with the patient and her . The patient has not had any new bleeding since arriving to the ED. As above, the fluid within the patient's pelvis appears to be physiologic, not blood. The patient's lower abdominal pain appears to be due to a right ovarian cyst. I'm recommending over- the-counter ibuprofen, however, if her symptoms persist into next week, I would like her to follow-up with [facility], Dr. Craig. If her symptoms worsen , in particular, if she continues to have a significant lower GI bleed, I would like her to return to the ED for reevaluation. Departure - Departure Time of Disposition: 13:01 Disposition: Home, Self-Care 01 Condition: Fair Clinical Impression: Hemorrhagic cyst of right ovary - Discharge Information *PRESCRIPTION DRUG MONITORING PROGRAM REVIEWED*: Not Applicable *COPY OF PRESCRIPTION DRUG MONITORING REPORT IN PATIENT BETH: Not Applicable Referrals: Reno Patel Jr, MD [Primary Care Provider] - Jorge Craig MD [Physician] - Forms: ED Department Discharge Additional Instructions: You were seen in the emergency room for lower abdominal pain and possible passing blood with stool this morning. Workup in the ER included blood work, a urinalysis, positional blood pressure checks, a CT scan of your abdomen and pelvis with oral and IV contrast, and a transvaginal ultrasound. Your workup found that you have a hemorrhagic right ovarian cyst, which is likely the cause of your pain, but the fluid in your pelvis appears to be physiologic, not blood. You were heme-negative (no blood found) on rectal exam. We recommend that you take [id number] ibuprofen, 2-3 tablets (400-600 mg) every 8 hours, with food, as needed for abdominal discomfort. If your symptoms persist into next week, we recommend that you follow-up with your [facility], Dr. Craig. If your symptoms worsen, in particular, if you have increased lower GI bleeding , we recommend that you return to the ER for reevaluation. - My Orders Last 24 Hours: My Active Orders 08/01/18 09:06 Orthostatic Vital Signs [RC] STAT 08/01/18 09:15 Sodium Chloride 0.9% [Normal Saline] 1,000 ml IV ASDIRECTED 08/01/18 09:47 Sodium Chloride 0.9% [Saline Flush] 10 ml FLUSH ONETIME PRN - Assessment/Plan Last 24 Hours: My Active Orders 08/01/18 09:06 Orthostatic Vital Signs [RC] STAT 08/01/18 09:15 Sodium Chloride 0.9% [Normal Saline] 1,000 ml IV ASDIRECTED 08/01/18 09:47 Sodium Chloride 0.9% [Saline Flush] 10 ml FLUSH ONETIME PRN
[2018-08-01] MEDS ORDERED: Sodium Chloride 0.9% 10 ML Syringe FLUSH PRN (09:47)
[2018-08-01] MEDS ORDERED: Diatrizoate Meglumine/Diatrizoate Sodium 37% 120 ML Bottle PO ONE (09:47)
[2018-08-01] MEDS ORDERED: Iopamidol 612 MG/ML 100 ML Bottle IVPUSH ONE (09:47)
--- NOTE | 2018-08-01 10:57 | CT ---
CT abdomen and pelvis Technique: Multiple axial sections were obtained from above the dome of the diaphragm inferiorly through the pubic symphysis. Intravenous and oral contrast was utilized. Delayed images were obtained through the bladder. Comparison: No prior abdominal or pelvic CT exam. Findings: Visualized lung bases shows nothing acute. Liver shows no focal parenchymal abnormality. Spleen appears within normal limits. Pancreas appears within normal limits. Adrenal glands show no nodule. Surgical clips are seen from prior cholecystectomy. Kidneys show symmetric contrast enhancement without hydronephrosis or mass. Aorta shows no aneurysm. No retroperitoneal adenopathy is seen. No mesenteric abnormalities are seen. Small amount of free fluid seen within the pelvis most likely physiologic or representing nonvisualized adnexal cyst rupture. Appendix not visualized with certainty. No bowel dilatation is seen. Delayed images shows contrast within the distal ureters and bladder. Bone window settings were reviewed which appear within normal limits for the patient's age. Impression: 1. Free fluid within the pelvis either physiologic or due to nonvisualized adnexal cyst rupture. 2. Appendix not visualized with certainty. 3. CT study of the abdomen and pelvis is otherwise unremarkable. Diagnostic code #2
[2018-08-01] MEDS ORDERED: HYDROmorphone 0.5 MG/0.5 ML SYRINGE IVPUSH STA (11:08)
--- NOTE | 2018-08-01 12:24 | US ---
Pelvic ultrasound: Multiple real-time images were obtained transvaginally. Comparison: Previous CT abdomen and pelvis exam performed earlier on the same day (10:32 AM). Findings: Previous hysterectomy is noted. Free fluid is seen within the pelvis which by pelvic ultrasound appears physiologic. Diffuse fluid-filled bowel is seen. Small cyst is noted within the right ovary measuring 2.3 cm which is slightly complicated believed to represent minimal hemorrhage. Ovaries are otherwise unremarkable with follicles in place. Measurements: Right ovary: 3.4 x 2.0 x 2.7 cm Left ovary: 2.9 x 2.4 x 2.2 cm Impression: 1. Diffuse fluid-filled bowel without bowel dilatation. 2. Previous hysterectomy. 3. Small complicated cyst within the right ovary felt to represent hemorrhagic and physiologic cyst. 4. Free fluid within the pelvis which by pelvic ultrasound appears to be physiologic. Diagnostic code #3
[2018-08-01 13:21] VITALS: BP 104/78
== END 2018-08-01 13:19 | disposition home or self-care (01) ==
LOC: JD.ED 08:36
DX: N83.201 Unspecified ovarian cyst, right side (principal); Z88.5 Allergy status to narcotic agent; Z87.891 Personal history of nicotine dependence
CPT/HCPCS: 36415; 74177; 76830; 80053; 81001; 83690; 85007; 85027; 96361; 96374; 96375; 96376; 99284; J1170; J2405; J7040; J7050; Q9963; Q9967

== ENCOUNTER 2020-09-23 09:33 | Emergency (ER) | payer SELFPAY ==
[2020-09-23 09:45] VITALS: BP 126/93; PULSE 84
[2020-09-23] MEDS ORDERED: diphenhydrAMINE 50 MG/ML SDV IVPUSH ONE (10:03)
[2020-09-23] MEDS ORDERED: Sodium Chloride 0.9% 10 ML Syringe FLUSH PRN (10:03)
[2020-09-23] MEDS ORDERED: Metoclopramide 10 MG/2 ML SDV IVPUSH ONE (10:03)
[2020-09-23] MEDS ORDERED: Ketorolac 30 MG/ML SDV IVPUSH SCH (10:15)
[2020-09-23] MEDS ORDERED: Sodium Chloride 0.9% 1,000 ML IV SCH (10:15)
--- NOTE | 2020-09-23 11:32 | EDM.PDOC ---
ED HPI GENERAL MEDICAL PROBLEM - General Chief Complaint: Headache Stated Complaint: MIGRAINE X 3 DAYS Time Seen by Provider: 09/23/20 09:54 Source of Information: Reports: Patient, RN Notes Reviewed - History of Present Illness INITIAL COMMENTS - FREE TEXT/NARRATIVE: 35 yr old female with onset of migraine Knowles 3 days ago that is not going away. Nausea but no vomiting. No fever or chills. No cough or difficulty breathing. Headache Pain Score (Numeric/FACES): 9 - Related Data Allergies Allergy/AdvReac Type Severity Reaction Status Date / Time morphine Allergy Severe Airway Verified 09/23/20 09:45 Tightness Home Meds: Home Meds Metoprolol Tartrate [Lopressor] 50 mg PO BEDTIME 08/25/18 [History] Sertraline [Zoloft] 50 mg PO BEDTIME 08/25/18 [History] traZODone HCl [Trazodone HCl] 50 mg PO BEDTIME 08/25/18 [History] Acetaminophen/oxyCODONE [Percocet 325-5 MG] 2 tab PO Q4H PRN tablet 08/26/18 [Rx] Ibuprofen 600 mg PO Q4HR PRN #30 tablet 08/26/18 [Rx] Past Medical History HEENT History: Reports: Impaired Vision Cardiovascular History: Reports: Hypertension, Other (See Below) Other Cardiovascular History: HYPOTENSION Respiratory History: Reports: Asthma Gastrointestinal History: Reports: None Genitourinary History: Reports: Renal Calculus, UTI, Recurrent 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: , 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 Other SHELLFISH SHUCKER History: ovarian hemorrhagic cyst, pelvic pain, dysmenorrhea, menorrhagia, ovarian cystectomy Neurological History: Reports: Migraines Psychiatric History: Reports: Anxiety, Depression, Other (See Below) Endocrine/Metabolic History: Reports: None Hematologic History: Reports: Anemia Immunologic History: Reports: None Oncologic (Cancer) History: Reports: None Dermatologic History: Reports: None - Past Surgical History Head Surgeries/Procedures: Reports: None HEENT Surgical History: Reports: Naso-Sinus Surgery, Oral Surgery Other HEENT Surgeries/Procedures: sinus surgery Respiratory Surgical History: Reports: None GI Surgical History: Reports: Appendectomy, Cholecystectomy Female Surgical History: Reports: Hysterectomy, Other (See Below) Endocrine Surgical History: Reports: None Neurological Surgical History: Reports: None Musculoskeletal Surgical History: Reports: Other (See Below) Other Musculoskeletal Surgeries/Procedures:: bunion removal right side Oncologic Surgical History: Reports: None Dermatological Surgical History: Reports: None Social & Family History - Family History Family Medical History: No Pertinent Family History - Tobacco Use Tobacco Use Status *Q: Never Tobacco User - Caffeine Use Caffeine Use: Reports: Coffee - Recreational Drug Use Recreational Drug Use: No - Living Situation & Occupation Living situation: Reports: , with Spouse, with Family (3 kids) Occupation: Unemployed ED ROS GENERAL - Review of Systems Review Of Systems: See Below Constitutional: Denies: Fever, Chills HEENT: Denies: Ear Pain, Sinus Problem Respiratory: Denies: Shortness of Breath, Cough Cardiovascular: Denies: Chest Pain GI/Abdominal: Reports: Nausea. Denies: Abdominal Pain, Vomiting Musculoskeletal: Denies: Neck Pain, Shoulder Pain, Arm Pain, Back Pain Skin: Reports: No Symptoms Neurological: Reports: Headache. Denies: Numbness, Tingling, Trouble Speaking, Difficulty Walking, Weakness - Physical Exam Exam: See Below General Appearance: Alert, Mild Distress Eye Exam: Bilateral Eye: PERRL Head Exam: Atraumatic Neck: Supple Respiratory/Chest: No Respiratory Distress, Lungs Clear Cardiovascular: Regular Rate, Rhythm Neuro Exam (Abbreviated): Alert, Oriented, No Motor/Sensory Deficits, Other (finger to nose testing nl) Course - Vital Signs Last Recorded V/S: Last Vital Signs Temp 97.4 F 09/23/20 09:42 Pulse 84 09/23/20 09:42 Resp 20 09/23/20 09:42 BP 126/93 H 09/23/20 09:42 Pulse Ox 100 09/23/20 09:42 - Orders/Labs/Meds Meds: Medications Discontinued Medications Generic Name Dose Route Start Last Admin Trade Name Kinsey PRN Reason Stop Dose Admin Diphenhydramine HCl 25 mg 09/23/20 10:03 09/23/20 10:30 Benadryl IVPUSH 09/23/20 10:04 25 mg ONETIME ONE Administration Sodium Chloride 1,000 mls @ 999 mls/hr 09/23/20 10:15 09/23/20 10:30 Normal Saline IV 999 mls/hr ONETIME TUCKER Administration Ketorolac Tromethamine 30 mg 09/23/20 10:15 09/23/20 10:30 Toradol IVPUSH 30 mg ONETIME TUCKER Administration Metoclopramide HCl 5 mg 09/23/20 10:03 09/23/20 10:30 Reglan IVPUSH 09/23/20 10:04 5 mg ONETIME ONE Administration Sodium Chloride 10 ml 09/23/20 10:03 09/23/20 10:31 Saline Flush FLUSH 10 ml ASDIRECTED PRN Administration Keep Vein Open - Re-Assessments/Exams Free Text/Narrative Re-Assessment/Exam: 09/24/20 13:45 good relief from meds given. Departure - Departure Time of Disposition: 11:30 Disposition: Home, Self-Care 01 Condition: Fair Clinical Impression: Migraine - Discharge Information Instructions: Migraine Headache, [id number] Referrals: Tamiko Gale NP [Primary Care Provider] - Forms: ED Department Discharge, ED Return to Work/School Form Additional Instructions: rest, no driving until this evening due to sedative medication given. Clear liquids and bland diet as tolerate. You may alternate tylenol and ibuprofen or aleve if needed for further Knowles. Follow up clinic as needed. Return to ED as needed. Sepsis Event Note (ED) - Evaluation Sepsis Screening Result: No Definite Risk
== END 2020-09-23 11:50 | disposition home or self-care (01) ==
LOC: JD.ED 09:33
DX: G43.909 Migraine, unspecified, not intractable, without status migrainosus (principal); I10 Essential (primary) hypertension; J45.909 Unspecified asthma, uncomplicated; F41.9 Anxiety disorder, unspecified; F32.9 Major depressive disorder, single episode, unspecified; Z88.5 Allergy status to narcotic agent; Z79.899 Other long term (current) drug therapy
CPT/HCPCS: 96374; 96375; 99283; J1200; J1885; J2765; J7030

== ENCOUNTER 2021-04-19 18:02 | Emergency (ER) | payer OTHER ==
[2021-04-19 18:15] VITALS: BP 115/87; PULSE 90
[2021-04-19] MEDS ORDERED: Ketorolac 60 MG/2 ML SDV IM ONE (18:18)
[2021-04-19] MEDS ORDERED: diphenhydrAMINE 50 MG/ML SDV IM ONE (18:18)
[2021-04-19] MEDS ORDERED: Metoclopramide 10 MG/2 ML SDV IM ONE (18:18)
--- NOTE | 2021-04-19 18:25 | EDM.PDOC ---
ED HPI GENERAL MEDICAL PROBLEM - General Chief Complaint: Headache Stated Complaint: HEADACHE Time Seen by Provider: 04/19/21 18:16 Source of Information: Reports: Patient, RN Notes Reviewed History Limitations: Reports: No Limitations - History of Present Illness INITIAL COMMENTS - FREE TEXT/NARRATIVE: Patient is a 35-year-old female presents to the ER for her headache. States she has a history of headaches and migraines, she has been tried on multiple different migraine medications but nothing really seems to work for the long- term. Patient is light and sound sensitive, is nauseous, having pain behind her eyes, and in the back of her head. States that she seen a neurologist sometime ago, but then they moved and she has not followed up since then. Her primary care provider is Karine Dominguez. Patient denies any other sick-like symptoms, fever/chills, cough/shortness of breath, vomiting/diarrhea. Headache Pain Score (Numeric/FACES): 9 - Related Data Allergies Allergy/AdvReac Type Severity Reaction Status Date / Time morphine Allergy Severe Airway Verified 04/19/21 18:15 Tightness Home Meds: Home Meds traZODone HCl [Trazodone HCl] 50 mg PO BEDTIME 08/25/18 [History] Albuterol Sulfate [Albuterol Sulfate Hfa] 1 puff INH ASDIRECTED PRN 02/10/21 [History] Fluticasone Propionate [Flovent HFA] 1 puff INH ASDIRECTED PRN 02/10/21 [History] Cetirizine [ZyrTEC] 10 mg PO DAILY 02/13/21 [History] Escitalopram [Lexapro] 10 mg PO DAILY 04/19/21 [History] Past Medical History HEENT History: Reports: Impaired Vision Cardiovascular History: Reports: Heart Murmur Respiratory History: Reports: Asthma Other Respiratory History: seasonal allergies Gastrointestinal History: Reports: None Genitourinary History: SHIFT BOSS History: Reports: , Spontaneous Other SHIFT BOSS History: ovarian hemorrhagic cyst, pelvic pain, dysmenorrhea, menorrhagia, ovarian cystectomy Neurological History: Reports: Migraines, Other (See Below) Other Neuro History: syncope Psychiatric History: Reports: Anxiety, Depression Endocrine/Metabolic History: Reports: None Hematologic History: Reports: Anemia, Blood Transfusion(s) Immunologic History: Reports: None Oncologic (Cancer) History: Reports: None Dermatologic History: Reports: None - Infectious Disease History Infectious Disease History: Reports: None - Past Surgical History HEENT Surgical History: Reports: Naso-Sinus Surgery, Oral Surgery Other HEENT Surgeries/Procedures: sinus surgery GI Surgical History: Reports: Appendectomy, Cholecystectomy Female Surgical History: Reports: Hysterectomy Musculoskeletal Surgical History: Reports: Other (See Below) Other Musculoskeletal Surgeries/Procedures:: bunion removal right side Social & Family History - Family History Family Medical History: No Pertinent Family History - Tobacco Use Tobacco Use Status *Q: Never Tobacco User - Caffeine Use Caffeine Use: Reports: Coffee - Recreational Drug Use Recreational Drug Use: No - Living Situation & Occupation Living situation: Reports: , with Spouse, with Family (3 kids) Occupation: Unemployed ED ROS GENERAL - Review of Systems Review Of Systems: Comprehensive ROS is negative, except as noted in HPI. - Physical Exam Exam: See Below Exam Limited By: No Limitations General Appearance: Alert, WD/WN, No Apparent Distress Eye Exam: Bilateral Eye: EOMI, Normal Inspection, PERRL Head Exam: Atraumatic, Normocephalic Respiratory/Chest: No Respiratory Distress, Lungs Clear, Normal Breath Sounds, No Accessory Muscle Use, Chest Non-Tender Cardiovascular: Normal Peripheral Pulses, Regular Rate, Rhythm, No Edema Neuro Exam (Abbreviated): Alert, Oriented, Normal Cognition, No Motor/Sensory Deficits Extremities: Normal Inspection, Normal Capillary Refill Psychiatric: Normal Affect, Normal Mood Skin Exam: Warm, Dry, Intact, Normal Color, No Rash Course - Vital Signs Last Recorded V/S: Last Vital Signs Temp 97.6 F 04/19/21 18:12 Pulse 90 04/19/21 18:12 Resp 16 04/19/21 18:12 BP 115/87 04/19/21 18:12 Pulse Ox 95 04/19/21 18:12 - Orders/Labs/Meds Meds: Medications Discontinued Medications Generic Name Dose Route Start Last Admin Trade Name Kinsey PRN Reason Stop Dose Admin Diphenhydramine HCl 25 mg 04/19/21 18:18 04/19/21 18:33 Diphenhydramine 50 Mg/Ml Sdv IM 04/19/21 18:19 25 mg ONETIME ONE Administration Ketorolac Tromethamine 60 mg 04/19/21 18:18 04/19/21 18:29 Ketorolac 60 Mg/2 Ml Sdv IM 04/19/21 18:19 60 mg ONETIME ONE Administration Metoclopramide HCl 10 mg 04/19/21 18:18 04/19/21 18:31 Metoclopramide 10 Mg/2 Ml Sdv IM 04/19/21 18:19 10 mg ONETIME ONE Administration - Re-Assessments/Exams Free Text/Narrative Re-Assessment/Exam: 04/19/21 18:24 Patient presents to the ER for the evaluation of her migraine headache, we will go ahead and give her IM Toradol, Benadryl, Reglan for initial management. 04/19/21 19:08 Patient was reassessed at bedside, states she is feeling much better and is wanting to go home at this time. We will discharge her home with general recommendations. Departure - Departure Time of Disposition: 19:08 Disposition: Home, Self-Care 01 Condition: Good Clinical Impression: Headache Qualifiers: Headache type: other headache syndrome Qualified Code(s): G44.89 - Other headache syndrome - Discharge Information *PRESCRIPTION DRUG MONITORING PROGRAM REVIEWED*: No *COPY OF PRESCRIPTION DRUG MONITORING REPORT IN PATIENT BETH: No Instructions: Migraine Headache, [id number] Referrals: Karine Carranza MD [Primary Care Provider] - Forms: ED Department Discharge Additional Instructions: You were evaluated in the ED for your headache. You were given a combination of medications for management. This did seem to provide you pretty good relief of your symptoms. Recommend that you go home and rest in a quiet, darkened room. Try also to keep well hydrated. Please return to the ED if your symptoms should change or worsen. Sepsis Event Note (ED) - Evaluation Sepsis Screening Result: No Definite Risk - Focused Exam Vital Signs: Vital Signs Temp Pulse Resp BP Pulse Ox 04/19/21 18:12 97.6 F 90 16 115/87 95
== END 2021-04-19 19:33 | disposition home or self-care (01) ==
LOC: JD.ED 18:02
DX: G44.89 Other headache syndrome (principal); J45.909 Unspecified asthma, uncomplicated; Z88.5 Allergy status to narcotic agent; Z79.899 Other long term (current) drug therapy
CPT/HCPCS: 96372; 99283; J1200; J1885; J2765

== ENCOUNTER 2022-02-10 19:54 | Emergency (ER) | payer OTHER ==
[2022-02-10 20:15] VITALS: BP 131/100; PULSE 109
[2022-02-10] MEDS ORDERED: Sodium Chloride 0.9% 1,000 ML IV STA (20:58)
[2022-02-10] MEDS ORDERED: Ketorolac 30 MG/ML SDV IVPUSH ONE (20:58)
[2022-02-10] MEDS ORDERED: Metoclopramide 10 MG/2 ML SDV IVPUSH ONE (20:58)
[2022-02-10] MEDS ORDERED: diphenhydrAMINE 50 MG/ML SDV IVPUSH ONE (20:59)
[2022-02-10] MEDS ORDERED: HYDROmorphone 0.5 MG/0.5 ML Syringe IVPUSH ONE (22:26)
== END 2022-02-10 23:00 | disposition home or self-care (01) ==
LOC: JD.ED 19:54
DX: S09.90XA Unspecified injury of head, initial encounter (principal); G43.909 Migraine, unspecified, not intractable, without status migrainosus; Z88.5 Allergy status to narcotic agent; Z88.0 Allergy status to penicillin; W01.198A Fall on same level from slipping, tripping and stumbling with subsequent striking against other object, initial encounter
CPT/HCPCS: 70450; 96374; 96375; 99283; J1170; J1200; J1885; J2765; J7030; 99284

== ENCOUNTER 2022-05-01 22:26 | Emergency (ER) | payer OTHER ==
[2022-05-01 22:36] VITALS: BP 116/83; PULSE 76
[2022-05-01] MEDS ORDERED: Ketorolac 15 MG/ML SDV IM ONE (22:54)
== END 2022-05-01 23:43 | disposition home or self-care (01) ==
LOC: JD.ED 22:26
DX: S63.601A Unspecified sprain of right thumb, initial encounter (principal); J45.909 Unspecified asthma, uncomplicated; Z88.5 Allergy status to narcotic agent; Z88.0 Allergy status to penicillin; Z79.899 Other long term (current) drug therapy; Z90.49 Acquired absence of other specified parts of digestive tract; Z90.710 Acquired absence of both cervix and uterus; X50.1XXA Overexertion from prolonged static or awkward postures, initial encounter
CPT/HCPCS: 29125; 73130; 96372; 99283; J1885; 99282

== ENCOUNTER 2022-09-16 16:45 | Emergency (ER) | payer MEDICAID, OTHER ==
[2022-09-16 16:54] VITALS: BP 122/75; PULSE 88
[2022-09-16] MEDS ORDERED: Metoclopramide 10 MG/2 ML SDV IM ONE (17:00)
[2022-09-16] MEDS ORDERED: diphenhydrAMINE 50 MG/ML SDV IM ONE (17:00)
[2022-09-16] MEDS ORDERED: Ketorolac 30 MG/ML SDV IM ONE (17:00)
== END 2022-09-16 18:36 | disposition home or self-care (01) ==
LOC: JD.ED 16:45
DX: G43.909 Migraine, unspecified, not intractable, without status migrainosus (principal); J45.909 Unspecified asthma, uncomplicated; Z88.6 Allergy status to analgesic agent; Z88.0 Allergy status to penicillin; Z79.899 Other long term (current) drug therapy; Z90.49 Acquired absence of other specified parts of digestive tract
CPT/HCPCS: 96372; 99283; J1200; J1885; J2765

== ENCOUNTER 2022-09-20 11:56 | Emergency (ER) | payer OTHER ==
[2022-09-20] MEDS ORDERED: Ketorolac 30 MG/ML SDV IM ONE (12:19)
[2022-09-20] MEDS ORDERED: Orphenadrine 100 MG Tab.ER PO ONE (13:48)
[2022-09-20] MEDS ORDERED: Acetaminophen/HYDROcodone 325-5 MG Tab PO ONE (13:48)
[2022-09-20 14:18] VITALS: BP 112/85; PULSE 75
== END 2022-09-20 14:18 | disposition home or self-care (01) ==
LOC: JD.ED 11:56
DX: M25.512 Pain in left shoulder (principal); J45.909 Unspecified asthma, uncomplicated; Z72.0 Tobacco use; Z88.5 Allergy status to narcotic agent; Z88.0 Allergy status to penicillin; Z79.899 Other long term (current) drug therapy; W00.0XXA Fall on same level due to ice and snow, initial encounter
CPT/HCPCS: 73030; 96372; 99283; A9270; J1885

== ENCOUNTER 2022-12-27 13:03 | Emergency (ER) | payer SELFPAY ==
[2022-12-27] MEDS ORDERED: Ketorolac 60 MG/2 ML SDV IM ONE (14:22)
[2022-12-27] MEDS ORDERED: diphenhydrAMINE 50 MG/ML SDV IM ONE (14:22)
[2022-12-27] MEDS ORDERED: HYDROmorphone 1 MG/ML Syringe IM ONE (14:22)
[2022-12-27] MEDS ORDERED: Metoclopramide 10 MG/2 ML SDV IM ONE (14:22)
[2022-12-27 16:13] VITALS: BP 119/84; PULSE 80
== END 2022-12-27 15:45 | disposition home or self-care (01) ==
LOC: JD.ED 13:03
DX: G43.909 Migraine, unspecified, not intractable, without status migrainosus (principal); Z88.5 Allergy status to narcotic agent; Z88.0 Allergy status to penicillin
CPT/HCPCS: 96372; 99283; J1170; J1200; J1885; J2765

== ENCOUNTER 2025-09-07 17:22 | Emergency (ER) | payer SELFPAY ==
[2025-09-07 17:58] LABS: BASOPHILS ABSOLUTE AUTO 0.0 K/mm3 (0.0-0.2); BASOPHILS PERCENT AUTO 0.5 % (0.0-1.0); EOSINOPHILS ABSOLUTE AUTO 0.2 K/mm3 (0.0-0.4); EOSINOPHILS PERCENT AUTO 2.7 % (0.0-6.0); IMMATURE GRAN ABSOLUTE AUTO 0.01 K/mm3 (0.00-0.05); IMMATURE GRAN PERCENT AUTO 0.2 % (0.0-0.4); LYMPHOCYTES ABSOLUTE AUTO 2.0 K/mm3 (1.0-4.8); LYMPHOCYTES PERCENT AUTO 32.0 % (24.0-44.0); MEAN PLATELET VOLUME 9.9 fl (9.4-12.3); MONOCYTES ABSOLUTE AUTO 0.6 K/mm3 (0.0-0.8); MONOCYTES PERCENT AUTO 9.9 % (0.0-8.0); NEUTROPHILS ABSOLUTE AUTO 3.4 K/mm3 (1.8-7.7); NEUTROPHILS PERCENT AUTO 54.7 % (41.0-71.0); NRBC ABSOLUTE 0.00 (0.00-0.02); NRBC PERCENT 0.0 % (0.0-0.2); PLATELET COUNT,PLT 262 K/mm3 (150-400); RED BLOOD CELL COUNT 4.09 M/mm3 (4.10-5.30); WHITE BLOOD CELL COUNT,WBC 6.28 K/mm3 (3.9-11.3)
[2025-09-07] MEDS: diphenhydrAMINE 50 MG/ML SDV IVPUSH ONE (17:58)
[2025-09-07] MEDS: Ondansetron 4 MG/2 ML SDV IVPUSH ONE (17:58)
[2025-09-07] MEDS: Ketorolac 30 MG/ML SDV IVPUSH ONE (17:58)
[2025-09-07 18:10] LABS: A/G RATIO 1.2 (1-2); ALANINE AMINOTRANSFERASE,ALT 18.0 U/L (14-59); ASPARTATE AMNIOTRANSFERASE,AST 19.0 U/L (15-37); BILIRUBIN TOTAL 0.4 mg/dL (0.2-1.0); BLOOD UREA NITROGEN,BUN 9.0 mg/dL (7-18); CARBON DIOXIDE,CO2 27.0 mEq/L (21-32); CHLORIDE,CL 104.0 mEq/L (98-107); CREATININE 0.8 mg/dL (0.55-1.02); EST CRCL DRUG DOSING (CG) 73.93 mL/min; ESTIMATED GFR 95.0 mL/min (>60); GLUCOSE RANDOM 82.0 mg/dL (70-99); POTASSIUM,K 3.8 mEq/L (3.5-5.1); PROTEIN TOTAL,TP 7.2 g/dl (6.4-8.2); SODIUM,NA 140.0 mEq/L (136-145)
[2025-09-07 20:18] VITALS: BP 129/88; PULSE 88
== END 2025-09-07 20:21 | disposition home or self-care (01) ==
LOC: JD.ED 17:22
DX: G43.909 Migraine, unspecified, not intractable, without status migrainosus (principal); R79.89 Other specified abnormal findings of blood chemistry; Z88.0 Allergy status to penicillin; Z88.5 Allergy status to narcotic agent; Z79.899 Other long term (current) drug therapy; Z90.49 Acquired absence of other specified parts of digestive tract; Z90.710 Acquired absence of both cervix and uterus
CPT/HCPCS: 36415; 80053; 85025; 96361; 96374; 96375; 99284; A9270; J1200; J1885; J2405; J7030; J1171